=== PATIENT | female | born 1970 | race Caucasian/White ===

== ENCOUNTER → 2019-04-28 10:48 | Outpatient (CLI) | payer BC ==
[2015-05-13 01:20] VITALS: BMI 33.0
[~2019-04-28 10:48] MED LIST: ADVAIR HFA [SP]12 GM INH; PROAIR HFA8.5 GM INH; SINGULAIR10 MG PO
[2019-04-29 08:11] LABS: ESTRADIOL 21.1 pg/mL (()); PROGESTERONE 0.1 ng/mL (())
== END | disposition home or self-care (01) ==
LOC: D.LAB 10:48
PROVIDERS: ATTEND Surgery
DX: N95.9 Unspecified menopausal and perimenopausal disorder (principal)

== ENCOUNTER 2020-04-24 15:00 | Outpatient (CLI) | payer BC ==
[2019-10-03 11:41] VITALS: BMI 31.6
== END 2020-04-24 23:59 | disposition home or self-care (01) ==
LOC: D.MAMMO 15:00
PROVIDERS: ATTEND Family Medicine
DX: R92.8 Other abnormal and inconclusive findings on diagnostic imaging of breast (principal)